=== PATIENT | female | born 2000 | race Caucasian/White ===

== ENCOUNTER 2021-03-08 14:18 | Emergency (ER) | payer OTHER ==
[2021-03-08 15:38] LABS: BASOPHIL 0.3 % (0-2); EOSINOPHIL 0.2 % (0-5); HCT 35.5 % (37.0-47.0); HGB 11.9 g/dl (12.5-16.0); LYMPHOCYTE 16.7 % (15-48); MCH 26.7 pg (25.0-31.0); MCHC 33.5 g/dL (32.0-36.0); MCV 79.6 fL (78.0-100.0); MONOCYTE 9.1 % (0-12); MPV 10.5 fL (6.0-9.5); NEUTROPHIL 72.9 % (41-80); NRBC 0; PLT 168 K/uL (150-400); RBC 4.46 M/uL (4.20-5.40); WBC 6.1 K/uL (4.0-10.5)
[2021-03-08 15:50] LABS: ALBUMIN 2.9 g/dL (3.4-5.0); BILIRUBIN - TOTAL 0.3 mg/dL (0.2-1.0); BUN/CREAT RATIO (CALC) 8.5 RATIO; CREATININE 0.59 mg/dL (0.51-0.95); GLOBULIN (CALCULATION) 4.4 g/dL; POTASSIUM 3.5 mmol/L (3.5-5.1); TOTAL PROTEIN 7.3 g/dL (6.4-8.2)
[2021-03-08 16:13] LABS: INFLUENZA A NAA NEGATIVE (NEGATIVE)
[2021-03-08 16:14] LABS: BILIRUBIN NEGATIVE (NEGATIVE); BLOOD NEGATIVE Ery/uL (NEGATIVE); CLARITY CLEAR (CLEAR); COLOR YELLOW (YELLOW); GLUCOSE (U) NORMAL (NORMAL); LEUKOCYTES NEGATIVE Leu/uL (NEGATIVE); NITRITE NEGATIVE (NEGATIVE); PROTEIN NEGATIVE (NEGATIVE); UROBILINOGEN 0.2 mg/dL (0.2-1.0)
[2021-03-08 16:20] LABS: MUCOUS TRACE
[2021-03-08 16:21] LABS: CORONAVIRUS 2019 SARS-COV-2 POSITIVE (NEGATIVE)
== END 2021-03-08 18:20 | disposition home or self-care (01) ==
LOC: FER 14:18
PROVIDERS: Physician Assistant
DX: O98.512 Other viral diseases complicating pregnancy, second trimester (principal); U07.1 COVID-19; Z3A.22 22 weeks gestation of pregnancy; Z79.82 Long term (current) use of aspirin
CPT/HCPCS: 36415; 80053; 81001; 85025; 87880; J2765; J7030; U0002

== ENCOUNTER 2021-07-06 08:12 | Inpatient (IN) | payer OTHER ==
[2021-07-06 10:53] LABS: HCT 35.6 % (37.0-47.0); HGB 11.6 g/dl (12.5-16.0); MCH 25.1 pg (25.0-31.0); MCHC 32.6 g/dL (32.0-36.0); MCV 77.1 fL (78.0-100.0); MPV 11.9 fL (6.0-9.5); RBC 4.62 M/uL (4.20-5.40); RDW 13.2 % (11.5-14.0); WBC 14.4 K/uL (4.0-10.5)
[2021-07-06 10:55] LABS: BILIRUBIN NEGATIVE (NEGATIVE); BLOOD 1+ Ery/uL (NEGATIVE); CLARITY CLEAR (CLEAR); COLOR YELLOW (YELLOW); GLUCOSE (U) NORMAL (NORMAL); LEUKOCYTES NEGATIVE Leu/uL (NEGATIVE); NITRITE NEGATIVE (NEGATIVE); PROTEIN NEGATIVE (NEGATIVE); SPECIFIC GRAVITY 1.015 (1.001-1.030); UROBILINOGEN 0.2 mg/dL (0.2-1.0)
[2021-07-06 11:31] LABS: BACTERIA TRACE
[2021-07-07 06:10] LABS: HCT 28.8 % (37.0-47.0); HGB 9.2 g/dL (12.5-16.0)
== END 2021-07-08 16:00 | disposition home or self-care (01) | DRG 806 ==
LOC: FOB 08:12
PROVIDERS: Obstetrics & Gynecology; ADMIT Obstetrics & Gynecology
PROC: 10E0XZZ Delivery of Products of Conception, External Approach (ICD-10-PCS; principal; 2021-07-06)
PROC: 0KQM0ZZ Repair Perineum Muscle, Open Approach (ICD-10-PCS; 2021-07-06)
DX: O99.214 Obesity complicating childbirth (principal); D62 Acute posthemorrhagic anemia; Z37.0 Single live birth; Z3A.39 39 weeks gestation of pregnancy; Z20.822 Contact with and (suspected) exposure to COVID-19; O99.824 Streptococcus B carrier state complicating childbirth; O90.81 Anemia of the puerperium; O70.1 Second degree perineal laceration during delivery; O71.82 Other specified trauma to perineum and vulva
CPT/HCPCS: 36415; 81001; 85014; 85018; 86850; 86900; 86901; J2001; J2300; J2540; J2916; J7120; U0002